=== PATIENT | male | born 1950 ===

== ENCOUNTER 2022-01-25 07:24 | Outpatient (CLI) | payer OTHER | END 2022-01-25 07:25 | disposition home or self-care (01) | LOC: NUCLEAR 07:24 | PROVIDERS: ATTEND Internal Medicine | DX: I25.9 Chronic ischemic heart disease, unspecified (principal) | CPT/HCPCS: 78452; 93017; A9500; J0153 ==

== ENCOUNTER 2023-07-04 07:36 | Outpatient (CLI) | payer OTHER | END 2023-07-04 07:38 | disposition home or self-care (01) | LOC: NUCLEAR 07:36 | PROVIDERS: ATTEND Internal Medicine | DX: I25.9 Chronic ischemic heart disease, unspecified (principal) | CPT/HCPCS: 78452; 93017; A9500; J0153 ==